=== PATIENT | male | born 1935 | race Caucasian/White ===

== ENCOUNTER 2019-10-15 11:43 | Outpatient (CLI) | payer MEDICARE, OTHER, SELFPAY ==
[2019-10-15 12:03] LABS: Basophils Absolute Auto 0.1 K/mm3 (0.0-0.1); Basophils Percent Auto 0.9 % (0.2-1.2); Eosinophils Absolute Auto 0.4 K/mm3 (0-0.3); Eosinophils Percent Auto 4.8 % (0-4.4); Hematocrit 31.4 % (42.0-52.0); Hemoglobin 10.2 g/dL (14.0-18.0); Immature Granulocyte Absolute 0.02 K/mm3 (0.00-0.031); Immature Granulocyte Percent A 0.3 % (0-0.5); Lymphocytes Absolute Auto 1.72 K/mm3 (0.9-3.2); Lymphocytes Percent Auto 22.8 % (18.3-44.2); Mean Corpuscular HGB Conc 32.5 g/dl (32-36); Mean Corpuscular Volume 95.4 fl (80-100); Neutrophils Absolute Auto 4.4 K/mm3 (1.3-6.7); Neutrophils Percent Auto 58.2 % (45.5-73.1); Platelet Count Result 299 k/mm3 (150-375); Red Blood Count 3.29 M/mm3 (4.6-6.20); Red Cell Distribution Width 13.7 % (11.5-14.5); White Blood Count 7.5 K/mm3 (4.5-10.0)
[2019-10-15 12:08] LABS: Blood Urea Nitrogen 32 mg/dL (8-26); Carbon Dioxide 22 mmol/L (22-30); Chloride 108 mmol/L (98-109); Estimated Glomerular Filt Rate 27; Glucose 80 mg/dL (70-105); Potassium 5.1 mmol/L (3.5-4.9); Sodium 141 mmol/L (138-146)
[2019-10-15 13:27] LABS: Iron 118 ug/dL (49-181)
[2019-10-15 13:37] LABS: Percent Iron Saturation 39 % (20-50)
== END 2019-10-15 11:44 | disposition home or self-care (01) ==
LOC: ANHLAB 11:47
PROVIDERS: PCP Family Medicine; Visit Provider Internal Medicine Hematology & Oncology
DX: N18.3 Chronic kidney disease, stage 3 (moderate) (principal); D63.1 Anemia in chronic kidney disease
CPT/HCPCS: 36415; 80048; 82728; 83540; 83550; 85025

== ENCOUNTER 2020-04-14 11:39 | Outpatient (CLI) | payer MEDICARE, OTHER, SELFPAY ==
[2020-04-14 11:56] LABS: Basophils Absolute Auto 0.1 K/mm3 (0.0-0.1); Basophils Percent Auto 0.8 % (0.2-1.2); Eosinophils Absolute Auto 0.5 K/mm3 (0-0.3); Eosinophils Percent Auto 5.3 % (0-4.4); Hematocrit 33.8 % (42.0-52.0); Immature Granulocyte Absolute 0.03 K/mm3 (0.00-0.031); Immature Granulocyte Percent A 0.3 % (0-0.5); Lymphocytes Absolute Auto 1.95 K/mm3 (0.9-3.2); Lymphocytes Percent Auto 22.1 % (18.3-44.2); Mean Corpuscular HGB Conc 32.5 g/dl (32-36); Mean Corpuscular Hemoglobin 31.4 pg (26-34); Mean Corpuscular Volume 96.6 fl (80-100); Mean Platelet Volume 10.6 fl (7.4-10.4); Neutrophils Absolute Auto 5.4 K/mm3 (1.3-6.7); Neutrophils Percent Auto 60.5 % (45.5-73.1); Platelet Count Result 320 k/mm3 (150-375); Red Cell Distribution Width 13.2 % (11.5-14.5); White Blood Count 8.8 K/mm3 (4.5-10.0)
[2020-04-14 12:01] LABS: Blood Urea Nitrogen 38 mg/dL (8-26); Carbon Dioxide 24 mmol/L (22-30); Chloride 108 mmol/L (98-109); Estimated Glomerular Filt Rate 26; Glucose 89 mg/dL (70-105); Potassium 5.7 mmol/L (3.5-4.9); Sodium 139 mmol/L (138-146)
[2020-04-14 13:03] LABS: Iron 131 ug/dL (49-181)
[2020-04-14 13:14] LABS: Percent Iron Saturation 41 % (20-50)
== END 2020-04-14 11:40 | disposition home or self-care (01) ==
LOC: ANHLAB 11:41
PROVIDERS: PCP Family Medicine; Visit Provider Internal Medicine Hematology & Oncology
DX: N18.30 Chronic kidney disease, stage 3 unspecified (principal); D63.1 Anemia in chronic kidney disease
CPT/HCPCS: 36415; 80048; 82728; 83540; 83550; 85025

== ENCOUNTER 2020-06-17 09:26 | Outpatient (CLI) | payer MEDICARE, OTHER, SELFPAY ==
[2020-06-17 10:26] LABS: Alanine Aminotransferase 14 U/L (4-50); Albumin Level 4.1 g/dL (3.5-5.1); Alkaline Phosphatase 66 U/L (38-126); Anion Gap 4 mmol/L (8-16); Aspartate Amino Transferase 26 U/L (17-59); Bilirubin,Total 0.4 mg/dL (0.2-1.3); Blood Urea Nitrogen 46 mg/dL (9-20); Calcium 8.9 mg/dL (8.4-10.2); Carbon Dioxide 26 mmol/L (22-30); Chloride 112 mmol/L (98-107); Estimated Glomerular Filt Rate 30; Glucose 86 mg/dL (75-110); Sodium 142 mmol/L (137-145)
== END 2020-06-17 09:27 | disposition home or self-care (01) ==
PROVIDERS: PCP Family Medicine; Visit Provider Internal Medicine Cardiovascular Disease
DX: I25.118 Atherosclerotic heart disease of native coronary artery with other forms of angina pectoris (principal)
CPT/HCPCS: 36415; 80053

== ENCOUNTER 2020-10-13 11:17 | Outpatient (CLI) | payer MEDICARE, OTHER, SELFPAY ==
[2020-10-13 11:32] LABS: Basophils Absolute Auto 0.1 K/mm3 (0.0-0.1); Basophils Percent Auto 1.1 % (0.2-1.2); Eosinophils Absolute Auto 0.4 K/mm3 (0-0.3); Eosinophils Percent Auto 5.7 % (0-4.4); Hemoglobin 10.9 g/dL (14.0-18.0); Immature Granulocyte Absolute 0.01 K/mm3 (0.00-0.031); Immature Granulocyte Percent A 0.1 % (0-0.5); Lymphocytes Absolute Auto 1.49 K/mm3 (0.9-3.2); Lymphocytes Percent Auto 20.9 % (18.3-44.2); Mean Corpuscular HGB Conc 32.1 g/dl (32-36); Mean Corpuscular Hemoglobin 30.8 pg (26-34); Mean Platelet Volume 10.9 fl (7.4-10.4); Monocytes Absolute Auto 0.8 K/mm3 (0.1-0.6); Monocytes Percent Auto 11.3 % (2.6-8.5); Neutrophils Absolute Auto 4.3 K/mm3 (1.3-6.7); Neutrophils Percent Auto 60.9 % (45.5-73.1); Platelet Count Result 289 k/mm3 (150-375); Red Blood Count 3.54 M/mm3 (4.6-6.20); Red Cell Distribution Width 13.8 % (11.5-14.5); White Blood Count 7.1 K/mm3 (4.5-10.0)
[2020-10-13 11:36] LABS: Blood Urea Nitrogen 35 mg/dL (8-26); Carbon Dioxide 23 mmol/L (22-30); Chloride 106 mmol/L (98-109); Estimated Glomerular Filt Rate 32; Glucose 91 mg/dL (70-105); Potassium 4.9 mmol/L (3.5-4.9); Sodium 141 mmol/L (138-146)
== END 2020-10-13 11:18 | disposition home or self-care (01) ==
LOC: ANHLAB 11:21
PROVIDERS: PCP Family Medicine; Visit Provider Internal Medicine Hematology & Oncology
DX: N18.30 Chronic kidney disease, stage 3 unspecified (principal); D63.1 Anemia in chronic kidney disease
CPT/HCPCS: 36415; 80048; 85025

== ENCOUNTER 2021-04-14 10:26 | Outpatient (CLI) | payer MEDICARE, SELFPAY ==
--- NOTE | ~2021-04-14 | XR_ITS ---
XR knee LT 3V 04/14/2021 10:57 Indication: Left knee pain Procedure: 3 views left knee Comparison: No prior studies Findings: No fracture, subluxation or dislocation. There is chondrocalcinosis. No significant joint e ffusion. No foreign bodies. Impression: 1: Chondrocalcinosis. Reviewed, dictated and finalized at location B. GER RFID Impression: 1: Chondrocalcinosis.
== END 2021-04-14 10:27 | disposition home or self-care (01) ==
PROVIDERS: PCP Family Medicine; Visit Provider Family Medicine
DX: M11.262 Other chondrocalcinosis, left knee (principal)
CPT/HCPCS: 73562